=== PATIENT | female | born 1980 | race Caucasian/White ===

== ENCOUNTER 2019-06-06 06:25 | Inpatient (IN) | payer OTHER ==
[2019-06-05 15:40] VITALS: BMI 26.6
[~2019-06-06] VITALS: Ht 170.2 cm; Wt 86.9 kg
[2019-06-06] VITALS (27 sets, daily range): BP systolic 107–145; BP diastolic 59–91; PULSE 64–87; RESP 12–24; Ht 170.2 cm; Wt 86.9 kg
[2019-06-06] MEDS ORDERED: CEFAZOLIN 2 GM/50 ML (PMX) 50 ML IVPB ONE (07:00)
[2019-06-06] MEDS ORDERED: LACTATED RINGER'S 1,000 ML IV SCH (07:00)
--- NOTE | 2019-06-06 07:22 | PREAC ---
Date/Time of Note Date/Time of Note DATE: 06/06/19 TIME: 07:21 Anesthesia Eval and Record Evaluation Time Pre-Procedure Interview DATE: 06/06/19 TIME: 07:21 Age 39 Sex female NPO: 8 hrs Preoperative diagnosis neck pain, tingling and numbness left fingers Planned procedure C5-C6 C6-C7 anterior discectomy and fusion Past Medical History Past Medical History: Includes Pulm: Other (seasonal allergies, takes Zyrtec) Surgery & Anesthesia Issues No known issue Meds Anticoagulation: No Beta David within 24 hr: No Reason Beta David not given: Pt. not on B-David No Active Prescriptions or Reported Meds Current Medications Cefazolin Sodium/ Dextrose 50 ml @ 100 mls/hr PRE-OP ONCE IVPB ; Start 06/06/19 at 07:00; Stop 06/06/19 at 07:29 Lactated Ringer's 1,000 ml @ 0 mls/hr Q0M IV ; Start 06/06/19 at 07:00 Meds reviewed: Yes Allergies Coded Allergies: No Known Allergy (Unverified , 06/06/19) Allergies Reviewed: Yes Labs/Studies Labs Reviewed: Reviewed by anesthesiologist test: Negative Studies: ECG Pre-procedure Exam Last vitals Vital Signs Date Temp Pulse Resp B/P (MAP) Pulse Ox O2 O2 Flow FiO2 Time Delivery Rate 06/06/19 98.1 87 18 145/91 98 07:13 (109) Airway: Adequate mouth opening, Adequate thyromental dist Mallampati: Mallampati II Teeth: Normal Lung: Normal Heart: Normal ASA Physical Status ASA physical status: 1 Emergency: None Planned Anesthetic General/MAC: ETT Planned Pain Management Parenteral pain med, Local by surgeon Pre-operative Attestations Prior to commencing anesthesia and surgery, the patient was re-evaluated, there was verification of: *The patient's identity *The results of appropriate recent lab work and preoperative vital signs *The above evaluation not changing prior to induction *Anesthetic plan, risk benefits, alternative and complications discussed with patient/family; questions answered; patient/family understands, accepts and wishes to proceed. CHARLES JONES Jun 06, 2019 07:22
[2019-06-06] MEDS ORDERED: LIDOCAINE 4% (MPF) 5 ML INJ ONE (07:23)
[2019-06-06] MEDS ORDERED: SUCCINYLCHOLINE CHLORIDE 100 MG/5 ML SYG IV ONE (07:25)
[2019-06-06] MEDS ORDERED: PROPOFOL 20 ML ONE (07:25)
[2019-06-06] MEDS ORDERED: HYDROmorphONE 2 MG/ML SYG ONE ×3 (07:25→09:14)
[2019-06-06] MEDS ORDERED: MIDAZOLAM 1 MG/ML 2 ML INJ ONE ×3 (07:25→08:16)
[2019-06-06] MEDS ORDERED: LIDOCAINE 2% (SDV) 5 ML INJ ONE (07:25)
[2019-06-06] MEDS ORDERED: ROCURONIUM 50 MG INJ ONE (07:25)
[2019-06-06] MEDS ORDERED: CEFAZOLIN 1 GM INJ ONE ×2 (07:25→08:16)
[2019-06-06] MEDS ORDERED: PROPOFOL 100 ML ONE (07:41)
--- NOTE | 2019-06-06 08:00 | HPN ---
Date/Time of Note Date/Time of Note DATE: 06/06/19 TIME: 08:00 Interval H&P Admission Note Pt. seen H&P reviewed: No system changes EDWARD GARCIA MD Jun 06, 2019 08:00
[2019-06-06] MEDS ORDERED: GELATIN SIZE 100 SPONGE ONE (08:04)
[2019-06-06] MEDS ORDERED: POLYMYXIN/BACITRACIN 1L IRRIG ONE (08:04)
[2019-06-06] MEDS ORDERED: BUPIVACAINE 0.5%/EPI (SDV) 30 ML INJ ONE (08:04)
[2019-06-06] MEDS ORDERED: THROMBIN 5000 UNIT (RECOTHROM) VIAL ONE (08:04)
[2019-06-06] MEDS ORDERED: FENTAnyl 250MCG INJ ONE (08:16)
[2019-06-06] MEDS ORDERED: SUGAMMADEX SODIUM 200 MG/2 ML VIAL IV ONE ×2 (08:16→12:23)
[2019-06-06] MEDS ORDERED: PHENYLephrine 10 MG INJ ONE ×2 (08:16→11:09)
[2019-06-06] MEDS ORDERED: hydrALAzine 20 MG INJ ONE ×2 (08:16→09:22)
[2019-06-06] MEDS ORDERED: ETOMIDATE 20 MG INJ ONE ×2 (08:16)
[2019-06-06] MEDS ORDERED: FENTAnyl 50 MCG/ML VIAL ONE ×5 (08:16→12:40)
[2019-06-06] MEDS ORDERED: ROPIVACAINE 0.5 % 30 ML VIAL ONE ×2 (08:16→11:38)
[2019-06-06] MEDS ORDERED: DESFLURANE 15 MIN ONE ×2 (08:16)
[2019-06-06] MEDS ORDERED: LIDOCAINE 1% (MDV) 20 ML INJ ONE ×2 (08:16→08:17)
[2019-06-06] MEDS ORDERED: morphine SULFATE/PF (10 MG/10 ML) INJ ONE ×2 (08:16)
[2019-06-06] MEDS ORDERED: DEXAMETHASONE 4 MG/ML 5 ML INJ ONE (08:38)
[2019-06-06] MEDS ORDERED: METOCLOPRAMIDE 10 MG INJ ONE (08:38)
[2019-06-06] MEDS ORDERED: ONDANSETRON 4 MG INJ ONE (08:38)
[2019-06-06] MEDS ORDERED: FAMOTIDINE 20 MG INJ ONE (08:39)
[2019-06-06] MEDS ORDERED: METOPROLOL 5 MG INJ ONE (09:03)
[2019-06-06] MEDS ORDERED: LABETALOL HCL 20MG INJ ONE (09:11)
[2019-06-06] MEDS ORDERED: METOCLOPRAMIDE 10 MG INJ IV PRN (09:30)
[2019-06-06] MEDS ORDERED: MEPERIDINE 25 MG INJ IV PRN (09:30)
[2019-06-06] MEDS ORDERED: LABETALOL HCL 20MG INJ IV PRN (09:30)
[2019-06-06] MEDS ORDERED: ONDANSETRON 4 MG INJ IV PRN ×2 (09:30→13:00)
[2019-06-06] MEDS ORDERED: hydrALAzine 20 MG INJ IV PRN (09:30)
[2019-06-06] MEDS ORDERED: OXYCODONE/ACETAMINOPHEN (5/325) TAB PO PRN ×2 (09:30)
[2019-06-06] MEDS ORDERED: HYDROmorphONE 1 MG/5 ML IV SYRINGE IV PRN ×2 (09:30)
[2019-06-06] MEDS ORDERED: MIDAZOLAM 1 MG/ML 2 ML INJ IV PRN (09:30)
[2019-06-06] MEDS ORDERED: HEPARIN 1000 UNITS/ML 10 ML INJ ONE (10:55)
[2019-06-06] MEDS ORDERED: GLYCOPYRROLATE 0.4 MG INJ ONE (11:13)
[2019-06-06] MEDS ORDERED: NEOSTIGMINE 3 MG/3 ML SYRINGE ONE (11:13)
--- NOTE | 2019-06-06 12:42 | OPR ---
Date/Time of Note Date/Time of Note DATE: 06/06/19 TIME: 12:33 Operative Report Free Text/Dictation DATE OF OPERATION: 06/06/2019 PREOPERATIVE DIAGNOSES: 1. C5-6 degenerative disk disease with severe foraminal stenosis with radiculopathy 2. C6-7 degenerative disk disease with severe foraminal stenosis with radiculopathy POSTOPERATIVE DIAGNOSES: 1. C5-6 degenerative disk disease with severe foraminal stenosis with radiculopathy 2. C6-7 degenerative disk disease with severe foraminal stenosis with radiculopathy OPERATION PERFORMED: 1.Anterior cervical level C5-6 diskectomy with central and foraminal decompression 2. Anterior cervical disc C5-6 instrumented fusion with allograft 3.Anterior cervical level C6-7 diskectomy with central and foraminal decompression 4. Anterior cervical disc C6-7 instrumented fusion with allograft 5. Use of operative microscope 6. Interpretation of neuromonitoring SURGEON: Edward Garcia MD SWIMMING POOL INSTALLER: LUIS ANTONIO Dove INDICATIONS: Patient is a 39 -year-old female who presents with a several year history of neck and left greater than right upper extremity pain with weakness. After having failed all attempts at conservative management, surgical treatment was recommended. She understood the risks included, but were not limited to, infection, neurologic injury, verve root and spinal cord injury, blood loss, dysphagia, dysphonia, espohogeal injury, dural tear, pseudarthosis, adjacent segment disease, persistence of preoperative symptoms and a potential need for further operative procedures and she elected to proceed with surgery. PROCEDURE IN DETAIL: The patient was identified in the pre-operative area where the operative site was marked in indelible ink. He was brought in the operating room. General anesthesia was obtained. Preoperative antibiotics were given. She was carefully positioned supine on the radiolucent table. The arms were padded and tucked at the sides. The neck was sterilely prepped and draped in the usual fashion. A standard left-sided skin incision was made in a prominent anterior skin fold. This was continued down through subcutaneous tissue to the platysma fascia. Full-thickness skin flaps were developed. The platysma was split in line with the direction of its fibers. The dissection proceeded through the deep cervical fascia at the interval between the esophagus and spine. The prevertebral fascia was carefully incised, cleared off at the anterior aspect of the C6-7 disk space. The anterior longitudinal ligament was carefully isolated as was the longus coli bilaterally. A [place] retraction cannula was placed into the C6 vertebral body, and an intraoperative radiograph was obtained to confirm the location of the midline along with the operative level. Once this was confirmed, a 2nd [place] pin was placed in the C7 vertebral body, and the longus colli was mobilized bilaterally using bipolar cautery and an elevator. A deep self-retaining retractor was placed underneath the longus colli bilaterally and then distraction was applied across the interspace. The operative microscope was at this point brought in. The osteophyte projecting over the anterior aspect of the C6-7 disk space was at this point resected with a spinal rongeur, and then t he anterior portion of the disk was incised with a #15 blade. The disk was excised in its entirety using a series of pituitary rongeurs and angled curettes back to the posterior longitudinal ligament. The uncovertebral osteophyte was resected to allow for foraminal decompression. A foraminotomy was performed bilaterally until a probe could be easily passed along the pathway of the C7 nerve roots. The posterior disk and the PLL were also removed using a nerve hook and a 2mm kerrison. The cord was noted to be decompressed. Hemostasis was obtained at this point, and then a series of trial sizers were used to select an appropriated size allograft spacer. Care was take not to disrupt the endplates. Intraoperative radiographs demonstrated good alignment of the trial, and then the final implant was selected and then inserted into the disk space. This was positioned appropriately and extended to the back of the C6 and C7 vertebral bodies. We used a 6mm height and 7 degree lordotic allograft implant. We then focused on the C5-6 level. Once this was confirmed, a 2nd [place] pin was placed in the C6 vertebral body, and the longus colli was mobilized bilaterally using bipolar cautery and an elevator. A deep self-retaining retractor was placed underneath the longus colli bilaterally and then distraction was applied across the interspace. The operative microscope was at this point brought in. The osteophyte projecting over the anterior aspect of the C5-6 disk space was at this point resected with a spinal rongeur, and then the anterior portion of the disk was incised with a #15 blade. The disk was excised in its entirety using a series of pituitary rongeurs and angled curettes back to the posterior longitudinal ligament. The uncovertebral osteophyte was resected to allow for foraminal decompression. A foraminotomy was performed bilaterally until a probe could be easily passed along the pathway of the C6 nerve roots. The posterior disk and the PLL were also removed using a nerve hook and a 2mm kerrison. The cord was noted to be decompressed. Hemostasis was obtained at this point, and then a series of trial sizers were used to select an appropriated size allograft spacer. Care was take not to disrupt the endplates. Intraoperative radiographs demonstrated good alignment of the trial, and then the final implant was selected and then inserted into the disk space. This was positioned appropriately and extended to the back of the C5 and C6 vertebral bodies. We used a 6mm height and 7 degree lordotic allograft implant. We then chose an appropriate sized plate (30mm) was placed and secured it in standard fashion. X-Rays were taken to ensure appropriate alignment and length of the plate as well as screw sizes. The operative site was washed out extensively with sterile normal saline. There was no significant bleeding. The [place] pins were removed, and the sites were blocked off with bone wax. The platysma fascia was then closed with 3-0 Vicryl suture in a running simple fashion over a medium hemovac drain, followed by 4-0 moncryl to close the skin in a running subcuticular fashion. Dermabond was placed, followed by a sterile dressing. The patient was extubated and transferred out to the postanesthesia care unit in a hard collar in good condition. There were no complications. Procedure Date: Jun 06, 2019 Preoperative Diagnosis 1. C5-6 degenerative disk disease with severe foraminal stenosis with radiculopathy 2. C6-7 degenerative disk disease with severe foraminal stenosis with radiculop athy Postoperative Diagnosis 1. C5-6 degenerative disk disease with severe foraminal stenosis with radiculopathy 2. C6-7 degenerative disk disease with severe foraminal stenosis with radiculopathy Operation/Procedure Performed 1.Anterior cervical level C5-6 diskectomy with central and foraminal decompression 2. Anterior cervical disc C5-6 instrumented fusion with allograft 3.Anterior cervical level C6-7 diskectomy with central and foraminal decom pression 4. Anterior cervical disc C6-7 instrumented fusion with allograft 5. Use of operative microscope 6. Interpretation of neuromonitoring Surgeon see signature line Bullard Machine Operator LUIS ANTONIO Dove Anesthesia Type: general Estimated Blood Loss: 10 - 50 ml's Transfusion none Specimen C5-6 and C6-7 disk Grafts/Implants see op report Complications none Pt Condition Post Procedure: stable Disposition: PACU Procedure Description PROCEDURE IN DETAIL: The patient was identified in the pre-operative area where the operative site was marked in indelible ink. He was brought in the operating room. General anesthesia was obtained. Preoperative antibiotics were given. She was carefully positioned supine on the radiolucent table. The arms were padded and tucked at the sides. The neck was sterilely prepped and draped in the usual fashion. A standard left-sided skin incision was made in a prominent anterior skin fold. This was continued down through subcutaneous tissue to the platysma fascia. Full-thickness skin flaps were developed. The platysma was split in line with the direction of its fibers. The dissection proceeded through the deep cervical fascia at the interval between the esophagus and spine. The prevertebral fascia was carefully incised, cleared off at the anterior aspect of the C6-7 disk space. The anterior longitudinal ligament was carefully isolated as was the longus coli bilaterally. A [place] retraction cannula was placed into the C6 vertebral body, and an intraoperative radiograph was obtained to confirm the location of the midline along with the operative level. Once this was confirmed, a 2nd [place] pin was placed in the C7 vertebral body, and the longus colli was mobilized bilaterally using bipolar cautery and an elevator. A deep self-retaining retractor was placed underneath the longus colli bilaterally and then distraction was applied across the interspace. The operative microscope was at this point brought in. The osteophyte projecting over the anterior aspect of the C6-7 disk space was at this point resected with a spinal rongeur, and then the anterior portion of the disk was incised with a #15 blade. The disk was excised in its entirety using a series of pituitary rongeurs and angled curettes back to the posterior longitudinal ligament. The uncovertebral osteophyte was resected to allow for foraminal decompression. A foraminotomy was performed bilaterally until a probe could be easily passed along the pathway of the C7 nerve roots. The posterior disk and the PLL were also removed using a nerve hook and a 2mm kerrison. The cord was noted to be decompressed. Hemostasis was obtained at this point, and then a series of trial sizers were used to select an appropriated size allograft spacer. Care was take not to disrupt the endplates. Intraoperative radiographs demonstrated good alignment of the trial, and then the final implant was selected and then inserted into the disk space. This was positioned appropriately and extended to the back of the C6 and C7 vertebral bodies. We used a 6mm height and 7 degree lordotic allograft implant. We then focused on the C5-6 level. Once this was confirmed, a 2nd [place] pin was placed in the C6 vertebral body, and the longus colli was mobilized bilaterally using bipolar cautery and an elevator. A deep self-retaining retractor was placed underneath the longus colli bilaterally and then distraction was applied across the interspace. The operative microscope was at this point brought in. The osteophyte projecting over the anterior aspect of the C5-6 disk space was at this point resected with a spinal rongeur, and then the anterior portion of the disk was incised with a #15 blade. The disk was excised in its entirety using a series of pituitary rongeurs and angled curettes back to the posterior longitudinal ligament. The uncovertebral osteophyte was resected to allow for foraminal decompression. A foraminotomy was performed bilaterally until a probe could be easily passed along the pathway of the C6 nerve roots. The posterior disk and the PLL were also removed using a nerve hook and a 2mm kerrison. The cord was noted to be decompressed. Hemostasis was obtained at this point, and then a series of trial sizers were used to select an appropriated size allograft spacer. Care was take not to disrupt the endplates. Intraoperative radiographs demonstrated good alignment of the trial, and then the final implant was selected and then inserted into the disk space. This was positioned appropriately and extended to the back of the C5 and C6 vertebral bodies. We used a 6mm height and 7 degree lordotic allograft implant. We then chose an appropriate sized plate (30mm) was placed and secured it in standard fashion. X-Rays were taken to ensure appropriate alignment and length of the plate as well as screw sizes. The operative site was washed out extensively with sterile normal saline. There was no significant bleeding. The [place] pins were removed, and the sites were blocked off with bone wax. The platysma fascia was then closed with 3-0 Vicryl suture in a running simple fashion over a medium hemovac drain, followed by 4-0 moncryl to close the skin in a running subcuticular fashion. Dermabond was placed, followed by a sterile dressing. The patient was extubated and transferred out to the postanesthesia care unit in a hard collar in good condition. There were no complications. EDWARD GARCIA MD Jun 06, 2019 12:42
[2019-06-06] MEDS ORDERED: HYDROCODONE/APAP (5/325) TAB PO PRN ×2 (13:00)
[2019-06-06] MEDS ORDERED: AL HYDROX/MG HYDROX/SIMETH 30 ML CUP PO PRN (13:00)
[2019-06-06] MEDS: HYDROmorphONE 1 MG/5 ML IV SYRINGE IV PRN ×2 (13:00→13:11)
[2019-06-06] MEDS ORDERED: ACETAMINOPHEN 325 MG TAB PO PRN (13:00)
[2019-06-06] MEDS ORDERED: ACETAMINOPHEN 1000MG/100ML IV 100 ML IVPB SCH (13:00)
[2019-06-06] MEDS ORDERED: PROCHLORPERAZINE 10 MG TAB PO PRN (13:00)
[2019-06-06] MEDS ORDERED: NACL 0.9% 3 ML SYG IV SCH (13:00)
[2019-06-06] MEDS ORDERED: NALOXONE (0.4 MG/ML) INJ IV PRN (13:00)
--- NOTE | 2019-06-06 13:06 | PAC ---
Date/Time of Note Date/Time of Note DATE: 06/06/19 TIME: 13:06 Post-Anesthesia Notes Post-Anesthesia Note Last documented vital signs bp 118/66 spo2 99% hr 73 rr 16 temp 100.2 Vital Signs Date Temp Pulse Resp B/P (MAP) Pulse Ox O2 O2 Flow FiO2 Time Delivery Rate 06/06/19 100.2 12:58 06/06/19 87 18 145/91 98 07:13 (109) Activity: WNL Respiratory function: WNL Cardiovascular function: WNL Mental status: Baseline Pain reasonably controlled: Yes Hydration appropriate: Yes Nausea/Vomiting absent: Yes CHARLES JONES Jun 06, 2019 13:06
[2019-06-06] MEDS ORDERED: ACETAMINOPHEN 1000MG/100ML IV 100 ML ONE (13:09)
[2019-06-06] MEDS: ACETAMINOPHEN 1000MG/100ML IV 100 ML IVPB SCH ×2 (13:18→21:57)
--- NOTE | 2019-06-06 13:25 | CONS ---
Assessment/Plan Assessment/Plan Assessment/Plan (Daily) Post op med consult dict cx spine surgery in very healthy female without significant PMH, will follow Consultation Date/Type/Reason Admit Date/Time Jun 06, 2019 at 06:25 Date/Time of Note DATE: 06/06/19 TIME: 13:24 Past Medical History Home Meds No Active Prescriptions or Reported Meds Medications Current Medications Lactated Ringer's 1,000 ml @ 0 mls/hr Q0M IV ; Start 06/06/19 at 07:00 Hydromorphone HCl (Dilaudid) 0.2 mg PACU PRN IV MILD PAIN 1-3; Start 06/06/19 at 09:30; Stop 06/06/19 at 16:00 Hydromorphone HCl (Dilaudid) 0.4 mg PACU PRN IV MOD PAIN 4-6 Last administered on 06/06/19at 13:11; Admin Dose 0.4 MG; Start 06/06/19 at 09:30; Stop 06/06/19 at 16:00 Hydromorphone HCl (Dilaudid) 0.6 mg PACU PRN IV SEVERE PAIN 7-10; Start 06/06/19 at 09:30; Stop 06/06/19 at 16:00 Oxycodone/ Acetaminophen (Percocet (5/ 325)) 1 tab PACU ORDER PRN PO .PAIN 1-5; Start 06/06/19 at 09:30; Stop 06/06/19 at 16:00 Oxycodone/ Acetaminophen (Percocet (5/ 325)) 2 tab PACU ORDER PRN PO .PAIN 6-10; Start 06/06/19 at 09:30; Stop 06/06/19 at 16:00 Ondansetron HCl (Zofran Inj) 4 mg PACU ORDER PRN IV NAUSEA/VOMITING Last administered on 06/06/19at 13:00; Admin Dose 4 MG; Start 06/06/19 at 09:30; Stop 06/06/19 at 16:00 Metoclopramide HCl (Reglan) 10 mg PACU ORDER PRN IV NAUSEA/VOMITING; Start 06/06/19 at 09:30; Stop 06/06/19 at 16:00 Labetalol HCl (Labetalol) 5 mg PACU ORDER PRN IV HIGH BLOOD PRESSURE; Start 06/06/19 at 09:30; Stop 06/06/19 at 16:00 Hydralazine HCl (Apresoline) 5 mg PACU ORDER PRN IV HIGH BLOOD PRESSURE; Start 06/06/19 at 09:30; Stop 06/06/19 at 16:00 Meperidine HCl (Demerol) 25 mg PACU ORDER PRN IV .RIGORS; Start 06/06/19 at 09:30; Stop 06/06/19 at 16:00 Midazolam HCl (Versed) 0.5 mg PACU ORDER PRN IV .ANXIETY; Start 06/06/19 at 09:30; Stop 06/06/19 at 16:00 Dextrose/Sodium Chloride 1,000 ml @ 100 mls/hr Q10H IV ; Start 06/06/19 at 12:42; Status UNV Acetaminophen/ Hydrocodone Bitart (Temple (5/325)) 1 tab Q4H PRN PO .PAIN 1-5; Start 06/06/19 at 13:00; Status UNV Acetaminophen/ Hydrocodone Bitart (Temple (5/325)) 2 tab Q4H PRN PO .PAIN 6-10; Start 06/06/19 at 13:00; Status UNV Cefazolin Sodium 50 ml @ 100 mls/hr Q6 IVPB ; Start 06/06/19 at 18:00; Stop 06/07/19 at 12:29; Status UNV Prochlorperazine (Compazine) 10 mg Q4H PRN PO NAUSEA/VOMITING; Start 06/06/19 at 13:00; Status UNV Ondansetron HCl (Zofran Inj) 4 mg Q6H PRN IV NAUSEA/VOMITING; Start 06/06/19 at 13:00; Status UNV Al Hydrox/Mg Hydrox/Simethicone (Mag-Al Plus) 15 ml Q4H PRN PO .CONSTIPATION; Start 06/06/19 at 13:00; Status UNV Docusate Sodium (Colace) 100 mg BID PO ; Start 06/07/19 at 09:00; Status UNV Acetaminophen (Tylenol Tab) 650 mg Q4H PRN PO TEMP GREATER THAN 101F OR OGNSALEZ; Start 06/06/19 at 13:00; Status UNV IV Flush (NS 3 ml) 3 ml PER PROTOCOL IV ; Start 06/06/19 at 13:00; Status UNV Hydromorphone HCl (Dilaudid INCLUSION PARAEDUCATOR) Q4PCA IV ; Start 06/06/19 at 13:00 Naloxone HCl (Narcan) 0.2 mg Q2M PRN IV RR 8 BREATHS/MIN OR LESS; Start 06/06/19 at 13:00; Status UNV Lidocaine (Lidoderm) 1 patch DAILY TD ; Start 06/07/19 at 09:00; Status UNV Acetaminophen 100 ml @ 400 mls/hr Q8 IVPB Last administered on 06/06/19at 13:18; Admin Dose 400 MLS/HR; Start 06/06/19 at 14:00; Stop 06/07/19 at 06:14 Allergies: Coded Allergies: No Known Allergy (Unverified , 06/06/19) Social History Smoking Status: Never smoker Exam/Review of Systems Exam Vitals Vital Signs Date Temp Pulse Resp B/P (MAP) Pulse Ox O2 O2 Flow FiO2 Time Delivery Rate 06/06/19 100.2 12:58 06/06/19 87 18 145/91 98 07:13 (109) Medications Medication Current Medications Lactated Ringer's 1,000 ml @ 0 mls/hr Q0M IV ; Start 06/06/19 at 07:00 Hydromorphone HCl (Dilaudid) 0.2 mg PACU PRN IV MILD PAIN 1-3; Start 06/06/19 at 09:30; Stop 06/06/19 at 16:00 Hydromorphone HCl (Dilaudid) 0.4 mg PACU PRN IV MOD PAIN 4-6 Last administered on 06/06/19at 13:11; Admin Dose 0.4 MG; Start 06/06/19 at 09:30; Stop 06/06/19 at 16:00 Hydromorphone HCl (Dilaudid) 0.6 mg PACU PRN IV SEVERE PAIN 7-10; Start 06/06/19 at 09:30; Stop 06/06/19 at 16:00 Oxycodone/ Acetaminophen (Percocet (5/ 325)) 1 tab PACU ORDER PRN PO .PAIN 1-5; Start 06/06/19 at 09:30; Stop 06/06/19 at 16:00 Oxycodone/ Acetaminophen (Percocet (5/ 325)) 2 tab PACU ORDER PRN PO .PAIN 6-10; Start 06/06/19 at 09:30; Stop 06/06/19 at 16:00 Ondansetron HCl (Zofran Inj) 4 mg PACU ORDER PRN IV NAUSEA/VOMITING Last administered on 06/06/19at 13:00; Admin Dose 4 MG; Start 06/06/19 at 09:30; Stop 06/06/19 at 16:00 Metoclopramide HCl (Reglan) 10 mg PACU ORDER PRN IV NAUSEA/VOMITING; Start 06/06/19 at 09:30; Stop 06/06/19 at 16:00 Labetalol HCl (Labetalol) 5 mg PACU ORDER PRN IV HIGH BLOOD PRESSURE; Start 06/06/19 at 09:30; Stop 06/06/19 at 16:00 Hydralazine HCl (Apresoline) 5 mg PACU ORDER PRN IV HIGH BLOOD PRESSURE; Start 06/06/19 at 09:30; Stop 06/06/19 at 16:00 Meperidine HCl (Demerol) 25 mg PACU ORDER PRN IV .RIGORS; Start 06/06/19 at 09:30; Stop 06/06/19 at 16:00 Midazolam HCl (Versed) 0.5 mg PACU ORDER PRN IV .ANXIETY; Start 06/06/19 at 09:30; Stop 06/06/19 at 16:00 Dextrose/Sodium Chloride 1,000 ml @ 100 mls/hr Q10H IV ; Start 06/06/19 at 12:42; Status UNV Acetaminophen/ Hydrocodone Bitart (Temple (5/325)) 1 tab Q4H PRN PO .PAIN 1-5; Start 06/06/19 at 13:00; Status UNV Acetaminophen/ Hydrocodone Bitart (Temple (5/325)) 2 tab Q4H PRN PO .PAIN 6-10; Start 06/06/19 at 13:00; Status UNV Cefazolin Sodium 50 ml @ 100 mls/hr Q6 IVPB ; Start 06/06/19 at 18:00; Stop 06/07/19 at 12:29; Status UNV Prochlorperazine (Compazine) 10 mg Q4H PRN PO NAUSEA/VOMITING; Start 06/06/19 at 13:00; Status UNV Ondansetron HCl (Zofran Inj) 4 mg Q6H PRN IV NAUSEA/VOMITING; Start 06/06/19 at 13:00; Status UNV Al Hydrox/Mg Hydrox/Simethicone (Mag-Al Plus) 15 ml Q4H PRN PO .CONSTIPATION; Start 06/06/19 at 13:00; Status UNV Docusate Sodium (Colace) 100 mg BID PO ; Start 06/07/19 at 09:00; Status UNV Acetaminophen (Tylenol Tab) 650 mg Q4H PRN PO TEMP GREATER THAN 101F OR GONSALEZ; Start 06/06/19 at 13:00; Status UNV IV Flush (NS 3 ml) 3 ml PER PROTOCOL IV ; Start 06/06/19 at 13:00; Status UNV Hydromorphone HCl (Dilaudid INCLUSION PARAEDUCATOR) Q4PCA IV ; Start 06/06/19 at 13:00 Naloxone HCl (Narcan) 0.2 mg Q2M PRN IV RR 8 BREATHS/MIN OR LESS; Start 06/06/19 at 13:00; Status UNV Lidocaine (Lidoderm) 1 patch DAILY TD ; Start 06/07/19 at 09:00; Status UNV Acetaminophen 100 ml @ 400 mls/hr Q8 IVPB Last administered on 06/06/19at 13:18; Admin Dose 400 MLS/HR; Start 06/06/19 at 14:00; Stop 06/07/19 at 06:14 MICHAEL MENDOZA MD Jun 06, 2019 13:25
[2019-06-06] MEDS: HYDROmorphONE 0.2 MG/ML PCA IV SCH (13:33)
--- NOTE | 2019-06-06 14:11 | CONS ---
DATE OF ADMISSION: 06/06/2019 DATE OF CONSULTATION: 06/06/[address] Garcia: Thank you very much for allowing me to evaluate this 39-year-old female who just underwent cervical s pine surgery. HISTORICAL EVENTS: As you well know, this patient earlier today underwent a C5 to C6/C6 to C7 anteri or cervical diskectomy and decompression for continued neck and radicular arm pain. Postoperatively, she has mild neck discomfort. Denies cough, wheezing, shortness of breath, nausea, vomiting, abdomi nal or chest pain. Admits to some mild hoarseness. PAST MEDICAL HISTORY: 1. Anxiety disorder. 2. Insomnia. 3. Remote history of urinary tract infection. 4. No history of high blood pressure, heart disease, or diabetes. 5. Right clavicle surgery. 6. Breast augmentation. 7. . 8. Ectopic . 9. Thyroid surgery. SOCIAL HISTORY: Does not smoke. . FAMILY HISTORY: To be reviewed later. ALLERGIES: NONE. PHYSICAL EXAMINATION: GENERAL: Comfortable appearing female in no acute distress. VITAL SIGNS: BP 118/76, pulse 80, respirations were 18. She was afebrile. EYES: Extraocular muscles were full. NOSE, MOUTH, AND THROAT: Normal. NECK: Revealed a soft collar in place. LUNGS: Clear. HEART: Rhythm is regular. No third or fourth sound. ABDOMEN: Nontender. Liver and spleen were not palpable. No mass or tenderness were noted. EXTREMITIES: No edema and no calf tenderness. IMPRESSION: 1. Stable postoperative. 2. We will follow daily and observe for signs and symptoms of thromboembolic disease. Dictated By: MICHAEL JUAREZ/ELSIE Conf#: [id number] DID#: [id number] CC: EDWARD GARCIA MD;*EndCC*
[2019-06-06] MEDS ORDERED: DEXAMETHASONE 10 MG/ML 1 ML INJ IV ONE (16:30)
[2019-06-06] MEDS ORDERED: METHOCARBAMOL 500 MG TAB PO PRN (16:30)
[2019-06-06] MEDS: DEXTROSE 5%-0.45% NACL 1,000 ML IV SCH (16:47)
[2019-06-06] MEDS: CEFAZOLIN 1 GM/50 ML (PMX) 50 ML IVPB SCH (18:38)
[2019-06-07 00:04] VITALS: BP 119/75; PULSE 72; RESP 18
[2019-06-07] MEDS: CEFAZOLIN 1 GM/50 ML (PMX) 50 ML IVPB SCH ×3 (00:18→12:08)
[2019-06-07] MEDS: DEXTROSE 5%-0.45% NACL 1,000 ML IV SCH ×2 (04:08→09:30)
[2019-06-07] MEDS: ACETAMINOPHEN 1000MG/100ML IV 100 ML IVPB SCH (06:12)
[2019-06-07] MEDS: HYDROmorphONE 0.2 MG/ML PCA IV SCH (06:12)
[2019-06-07 07:34] VITALS: BP 124/83; PULSE 64; RESP 18
[2019-06-07] MEDS ORDERED: LIDOCAINE 5% PATCH TD SCH (09:00)
[2019-06-07] MEDS ORDERED: DOCUSATE SODIUM 100 MG CAP PO SCH (09:00)
[2019-06-07] MEDS ORDERED: DEXAMETHASONE 10 MG/ML 1 ML INJ IV ONE (10:00)
--- NOTE | 2019-06-07 12:35 | CONS ---
Consult Date/Type/Reason Admit Date/Time Jun 06, 2019 at 06:25 Initial Consult Date 06/06/2019 Type of Consultation: Internal Medicine Reason for Consultation medical management Date/Time of Note DATE: 06/07/19 TIME: 12:31 Subjective Patient feeling well. Pain adequately controlled. Paresthesia in hands improved, minimal in one finger of left hand. Denies fevers, chills, nausea, vomiting, diarrhea, chest pain, sob, cough. No BM since before admission. Objective Vitals Vital Signs Date Temp Pulse Resp B/P (MAP) Pulse Ox O2 O2 Flow FiO2 Time Delivery Rate 06/07/19 16 09:00 06/07/19 98.1 64 124/83 95 Room Air 07:34 (97) 06/06/19 2.0 20:20 Intake and Output 06/06/19 06/06/19 06/07/19 1515:00 23:00 07:00 IntakeIntake Total 1300 ml 350 ml 2315 ml OutputOutput Total 42 ml 30 ml BalanceBalance 1258 ml 350 ml 2285 ml Exam gen-NAD HEENT-Op clear, mmm, EOMI CV-RRR, nml s1/sw Pulm-CTAB, no w/r/r Abd-soft, nt/nd, +BS Ext-no c/c/e. 5/5 bilateral upper and lower extremity strength Results/Medications Result Diagram: 06/07/1944406/07/19444 Results 24 hrs Laboratory Tests Test 06/07/19 04:45 Hemoglobin 12.0 Hematocrit 36.7 L Sodium Level 136 Potassium Level 4.1 Chloride Level 104 Carbon Dioxide Level 26 Anion Gap 6 Blood Urea Nitrogen 8 Creatinine 0.65 Est Glomerular Filtrat Rate mL/min > 60 Glucose Level 168 Calcium Level 9.0 Home Meds No Active Prescriptions or Reported Meds Medications Current Medications Lactated Ringer's 1,000 ml @ 0 mls/hr Q0M IV ; Start 06/06/19 at 07:00 Dextrose/Sodium Chloride 1,000 ml @ 100 mls/hr Q10H IV Last administered on 06/07/19at 04:08; Admin Dose 100 MLS/HR; Start 06/06/19 at 13:30 Acetaminophen/ Hydrocodone Bitart ([place] (5/325)) 1 tab Q4H PRN PO .PAIN 1-5; Start 06/06/19 at 13:00 Acetaminophen/ Hydrocodone Bitart ([place] (5/325)) 2 tab Q4H PRN PO .PAIN 6-10 Last administered on 06/07/19at 10:20; Admin Dose 2 TAB; Start 06/06/19 at 13:00 Prochlorperazine (Compazine) 10 mg Q4H PRN PO NAUSEA/VOMITING; Start 06/06/19 at 13:00 Ondansetron HCl (Zofran Inj) 4 mg Q6H PRN IV NAUSEA/VOMITING Last administered on 06/06/19at 16:57; Admin Dose 4 MG; Start 06/06/19 at 13:00 Al Hydrox/Mg Hydrox/Simethicone (Mag-Al Plus) 15 ml Q4H PRN PO .CONSTIPATION; Start 06/06/19 at 13:00 Docusate Sodium (Colace) 100 mg BID PO Last administered on 06/07/19at 09:52; Admin Dose 100 MG; Start 06/07/19 at 09:00 Acetaminophen (Tylenol Tab) 650 mg Q4H PRN PO TEMP GREATER THAN 101F OR GONSALEZ; Start 06/06/19 at 13:00 IV Flush (NS 3 ml) 3 ml PER PROTOCOL IV ; Start 06/06/19 at 13:00 Naloxone HCl (Narcan) 0.2 mg Q2M PRN IV RR 8 BREATHS/MIN OR LESS; Start 06/06/19 at 13:00 Lidocaine (Lidoderm) 1 patch DAILY TD Last administered on 06/07/19at 09:54; Admin Dose 1 PATCH; Start 06/07/19 at 09:00 Methocarbamol (Robaxin) 500 mg Q8H PRN PO MUSCLE SPASMS; Start 06/06/19 at 16:30 Assessment/Plan Hospital Course (Demo Recall) 39 y/o female pmh anxiety, insomnia s/p cervical discectomy, decompression for cervical disc disease. Assessment/Plan (Daily) #cervical disc disease s/p discectomy -judicious pain management -pt -cleared for DC home with home health from medical standpoint after drain removed #constipation -will add standing miralax, should take daily at home until bowel patterns normalized. #Anxiety/insomnia-doing well -prn management MAKAYLA HAUSER MD Jun 07, 2019 12:35
[2019-06-07] MEDS ORDERED: POLYETHYLENE GLYCOL 17 GM PACKET PO SCH (13:00)
--- NOTE | 2019-06-07 14:10 | PDOCDIS ---
Discharge Instructions CONDITION [id number] Patient Condition: Xsoae2c Good HOME CARE INSTRUCTIONS: [id number] Diet Instructions: [id number] Regular ACTIVITY: [id number] Activity Restrictions: [id number] Slowly Increase Activity Rest between Activity Avoid heavy lifting Do not Drive Do not operate Machinery Do not operate Power Tool Avoid Heavy Housework [id number] Bathing Restrictions: [id number] Shower FOLLOW UP/APPOINTMENTS Follow-up Plan Follow-up in 2 weeks EDWARD GARCIA MD Jun 07, 2019 14:10
--- NOTE | 2019-06-18 02:40 | DS ---
DATE OF ADMISSION: 06/06/2019 DATE OF DISCHARGE: 06/07/2019 DIAGNOSIS ON ADMISSION: C5-C7 degenerative disk disease with severe foraminal stenosis with radiculo lyle. DISCHARGE DIAGNOSES: C5-C7 degenerative disk disease with severe foraminal stenosis with radiculopat hy. PROCEDURE PERFORMED DURING THIS HOSPITALIZATION: Anterior cervical diskectomy and instrumented fusio n C5-C7. HOSPITAL COURSE: The patient had an uncomplicated hospital course. Prior to discharge, she was tole rating a regular diet. Her pain is under good control with p.o. pain medications. She was noted to be neurovascularly intact. MEDICATIONS AT DISCHARGE: The patient was started on p.o. [place] 5/325 mg 1 to 2 tabs q.4-6h. p.r.n. pain. WOUND CARE AT DISCHARGE: The patient was told to keep her anterior cervical wound clean, dry and int act. Dressing was provided to the patient. She was told to shower. ACTIVITY AT DISCHARGE: The patient was told to avoid activities that required excessive cervical ran ge of motion and to avoid lifting greater than 20 pounds. She was told to wear her cervical collar a nd remove it when showering. FOLLOWUP CARE: The patient was told to follow up with Dr. Salvador 2 weeks. She was told to contac t our office for an earlier appointment if she developed any fevers, chills, chest pain, shortness of breath, issues with her wound, motor or sensory changes. Dictated By: EDWARD HOWARD/ELSIE Conf#: [id number] DID#: [id number]
== END 2019-06-07 16:17 | disposition home or self-care (01) | DRG 473 ==
LOC: REC 06:25 → EDSTATUS 08:00 → MS1 14:15
PROVIDERS: ADMIT Orthopaedic Surgery; ATTEND Orthopaedic Surgery
PROC: 0RT30ZZ Resection of Cervical Vertebral Disc, Open Approach (ICD-10-PCS; 2019-06-06)
PROC: 01N10ZZ Release Cervical Nerve, Open Approach (ICD-10-PCS; 2019-06-06)
PROC: 00NW0ZZ Release Cervical Spinal Cord, Open Approach (ICD-10-PCS; 2019-06-06)
PROC: 4A11X4G Monitoring of Peripheral Nervous Electrical Activity, Intraoperative, External Approach (ICD-10-PCS; 2019-06-06)
PROC: 0RG20K0 Fusion of 2 or more Cervical Vertebral Joints with Nonautologous Tissue Substitute, Anterior Approach, Anterior Column, Open Approach (ICD-10-PCS; principal; 2019-06-06 08:00)
DX: M50.122 Cervical disc disorder at C5-C6 level with radiculopathy (principal); M48.02 Spinal stenosis, cervical region; F41.9 Anxiety disorder, unspecified; G47.00 Insomnia, unspecified
CPT/HCPCS: 72040; 72052; 80048; 85014; 85018; 86850; 86900; 86901; 88304; 97116; 97161; J0131; J0360; J0690; J1100; J1170; J1644; J2250; J2274; J2370; J2405; J2710; J2765; J2795; J3010; J7042